=== PATIENT | female | born 2000 | race Caucasian/White ===

== ENCOUNTER 2025-03-24 12:51 | Outpatient (AMB) | payer MEDICAID, SELFPAY ==
--- NOTE | 2025-03-24 13:11 | GYNCLNT_ITS ---
Vital Signs 03/24/25 13:12 Height 1.7 m Height Method Stated Weight 152.974 kg Weight Measurement Method Standing Scale BMI 52.8 BP 148/96 H Blood Pressure Source Automatic Cuff Blood Pressure Location Left Upper Arm Position Sitting Respiration 16 Pulse 96 Pulse Source Monitor Temp 97.2 F Temp Source Oral Pulse Oximetry (%) 98 Oxygen Delivery Method Room Air Allergies/Home Meds Allergies & Medications Allergies No Known Allergies Allergy (Verified 03/24/25 13:13) Medication Reconciliation diazepam 10 mg tablet (Valium) 10 mg PO BID PRN back pain #6 tabs 03/22/24 [Rx Confirmed 03/24/25] hydrochlorothiazide 25 mg tablet 25 mg PO QDAY 03/22/24 [History Confirmed 03/24/25] sertraline 100 mg tablet 100 mg PO QDAY 03/22/24 [History Confirmed 03/24/25] Intake Visit Data Collection New Patient or Established: Established Patient (seen at [facility] within 3 years) Reason for Visit:: PREGNACY TEST Seen by Clinical Staff ONLY (RN/MA): No International Logistics Coordinator Required: No Do You Feel Safe at Home: Yes Authorities Contacted: N/A PCP or OBGYN visit in last 3 months: Yes Date of Last PCP or OBGYN visit: 03/22/25 Hx Now: Yes Are you currently on any form of Control: No Last menstrual period: 01/09/25 Pain Present Currently: No Pain Scale Used: Fisher-Hansen/Numerical Pain scale:: 0 Smoking Status Smoking Status: Never smoker 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 1. Little interest or pleasure in doing things: not at all 2. Feeling down, depressed, or hopeless: not at all Total score: 0 PHQ-9 3. Trouble falling or staying asleep, or sleeping too much: Not at all 4. Feeling tired or having little energy: Not at all 5. Poor appetite or overeating: Not at all 6. Feeling bad about yourself - or that you are a failure or have let yourself or your family down: Not at all 7. Trouble concentrating on things, such as reading the newspaper or watching television: Not at all 8. Moving or speaking so slowly that other people could have noticed? - Or the opposite - being so fidgety or restless that you have been moving around a lot more than usual: not at all 9. Thoughts that you would be better off or of hurting yourself in some way: Not at all Total score: 0 If you checked off any problems, how difficult have these problems made it for you to do your work, take care of things at home, or get along with other people?: not difficult at all Source: Developed by Drs. Iftikhar Villavicencio, Ana Cristina Trujillo, Stef Sotelo and colleagues, with an educational omari from [employer]. Depression screen completed yes Social History Living Situation History Marital Status: Single Lives With: Family Housing: House Tobacco History Smoking Status: Never smoker Second Hand Smoke Exposure: No Alcohol History Alcohol Intake: Never Domestic Abuse History Do You Feel Safe at Home: Yes History of Present Illness HPI Narrative 25-year-old 2 para 1 for test. Patient had a positive test at home she is here for confirmation. She tracks her periods with an alicia. Her last. January 09, 2025. This gives a due date October 16, 2025. So she is 10 weeks 3 today. Patient has a history of chronic hypertension, not on any meds and no follow-up. She also is morbidly obese, her weight today was 337. She denies any social habits. Denies any existing asthma or diabetes or thyroid disease. Denies SAB complaints. No bleeding. The patient is a previous x 1 she was induced at 38 weeks for high blood pressure and need to . No first trimester complaints. Patient and partner are excited about the Review of Systems Review of Systems Systems Reviewed: All systems reviewed, normal except as documented Exam General Limitations: no limitations General Appearance: alert, in no apparent distress, comfortable, cooperative, healthy appearing, well developed and well groomed Head Head exam: atraumatic, normocephalic and normal inspection Chest Chest inspection: Present normal inspection and symmetric chest wall rise Resp Respiratory exam: Present normal lung sounds bilaterally Card Cardiovascular exam: Present regular rate, normal rhythm and normal heart sounds Abdominal Abdominal exam: Present soft and normal bowel sounds Psych Psychiatric exam: Present normal affect and normal mood Results Objective Laboratory: + preg test, BP: 148/96 Office Procedures OBC Clinic LOC & Office Proc's Nursing/Assessment Patient Status: Established Patient OB Clinic Nursing Assessment: Medication Reconciliation, Update PMH in EMR and Vital Signs OB Clinic Coordination of Care: Education Complex Pt/Fam, Consent,records obtained, informed consent, Lab and Imaging orders, Results/Orders obtained and Staff clarify orders Special Needs: Heart tones Established Patient Charge Established Patient Point Assignment: 115 Established Patient Point Charge: EP Level 3 (80-115) Assessment & Plan Diagnosis / Problem List (1) Encounter for test, result positive: Status: Acute Plan verification given. Review of dates. I ordered an OB panel with hemoglobin A1c. CMP. And 24-hour urine protein. NIPT and carrier screens were also done. We discussed diet and weight. Increase activity. Discussed danger signs symptoms and ER precautions. And patient will follow-up with OB for OBI.
[2025-03-24 13:12] VITALS: BP 148/96; PULSE 96; RESP 16; TEMP 36.2; O2SAT 98; BMI 52.8
== END 2025-03-24 13:26 | disposition home or self-care (01) ==
LOC: HODSOBC 12:51
PROVIDERS: PCP Family Medicine; Referring Provider Family Medicine; Supervising Provider Advanced Practice Midwife; Visit Provider Advanced Practice Midwife
DX: Z32.01 Encounter for pregnancy test, result positive (principal)
CPT/HCPCS: 99213; G0463

== ENCOUNTER 2025-04-10 15:52 | Emergency (ER) | payer MEDICAID, SELFPAY ==
[2025-04-10 15:52] VITALS: BMI 49.3
[2025-04-10 16:23] VITALS: BP 160/98; PULSE 107; RESP 18; TEMP 37.6; O2SAT 99
--- NOTE | 2025-04-10 16:38 | XR_ITS ---
Examination: Complete OB ultrasound, less than 14 weeks, transabdominal Date and time of exam: April 10, 2025, 1653 hours INDICATIONS: Vaginal bleeding today Technique: Obstetrical ultrasound images less than 14 weeks performed via transabdominal imaging Findings: Uterus 10.0 cm CRL 2.3 cm corresponds to 9 weeks 0 days gestational age No cardiac motion Right ovary 3.5 cm arterial flow. Left ovary 2.8 cm arterial flow IMPRESSION: Intrauterine gestation corresponding to 9 weeks 0 days gestational age, no cardiac motion, demise
--- NOTE | 2025-04-10 16:39 | PD.EDRME ---
Rapid Medical Screening Exam E Arrival date/time: 04/10/25 15:52 This is a 25-year-old female that is a 2 para 1. She comes into the emergency room today with complaints of vaginal bleeding. Patient states symptoms started today. Patient thinks she is approximately 13 weeks . Her last menstrual period was mid December. Patient denies any urinary symptoms. I have greeted and performed a focused initial assessment of this patient. Initial appropriate labs ordered at this time. A comprehensive ED assessment and evaluation of the patient and analysis of all test and completion of medical decision making process will be conducted by additional ED provider. Chief Complaint: Vaginal Bleeding Time Seen by Provider: 04/10/25 16:25 Vital signs: Vital Signs Temperature 99.6 F 04/10/25 16:23 Pulse Rate 107 H 04/10/25 16:23 Respiratory Rate 18 04/10/25 16:23 Blood Pressure 160/98 H 04/10/25 16:23 Pulse Oximetry (%) 99 04/10/25 16:23 Oxygen Delivery Method Room Air 04/10/25 16:23
[2025-04-10 17:08] LABS: Collection Type, Urine Voided
[2025-04-10 17:12] LABS: Basophils # (Auto) 0.0 Thou/mm3 (0.0-0.2); Basophils % (Auto) 1 % (0-2.5); Eosinophils # (Auto) 0.0 Thou/mm3 (0.0-0.5); Eosinophils % (Auto) 1 % (0-10); Hematocrit 36.2 % (36.0-46.0); Hemoglobin 11.8 g/dL (12.0-16.0); Immature Granulocytes Auto 0.01 Thou/mm3 (0.00-0.00); Lymphocytes # (Auto) 1.9 Thou/mm3 (1.0-4.8); Lymphocytes % (Auto) 37 % (10-50); Mean Corpuscular HGB Conc 32.6 g/dl (31.0-37.0); Mean Corpuscular Hemoglobin 25.9 pg (25.0-35.0); Mean Corpuscular Volume 79 fL (80-100); Monocytes # (Auto) 0.7 Thou/mm3 (0.0-0.8); Monocytes % (Auto) 13 % (0-12); Neutrophils # (Auto) 2.6 Thou/mm3 (1.8-7.7); Neutrophils % (Auto) 49 % (37-80); Nucleated Red Blood Cell # 0.00 Thou/mm3 (0.00-0.00); Nucleated Red Blood Cell % 0 /100 WBC (0); Platelet Count 284 Thou/mm3 (140-440); RDW Standard Deviation 45.3 fL (36.4-46.3); Red Blood Count 4.56 Miln/mm3 (4.00-5.20); White Blood Count 5.2 Thou/mm3 (3.6-11.0)
[2025-04-10 17:24] LABS: Bilirubin,Urine Negative (Negative); Blood,Urine 3+ (Negative); Color,Urine Yellow (Lt Yel-Yel); Culture Indicated,Urine Not Indicated; Glucose, Urine Negative (Negative); Ketones,Urine 2+ (Negative); Leukocyte Esterase,Urine Negative (Negative); Nitrite,Urine Negative (Negative); PH,Urine 6.0 (5.0-7.0); Protein,Urine 1+ (Neg - Trace); RBC,Urine < 1 /hpf (0-3); Specific Gravity,Urine 1.028 (1.001-1.035); Squamous Epithelial Cell,Urine 26 /hpf (0-5); Urobilinogen,Urine Negative mg/dL (0.0-1.0); WBC,Urine 4 /hpf (0-5)
[2025-04-10 17:25] LABS: Clarity,Urine Hazy (Clear/Hazy)
[2025-04-10 17:46] LABS: Alanine Aminotransferase 26 U/L (10-49); Albumin, Serum 4.6 gm/dL (3.5-5.0); Albumin/Globulin Ratio 2.1 (1.2-2.2); Alkaline Phosphatase 38 U/L (46-116); Anion Gap 9 (7-16); Aspartate Amino Transferase 25 U/L (0-34); BUN/Creatinine Ratio 9 Ratio (12-20); Bilirubin,Total 0.3 mg/dL (0.3-1.2); Blood Urea Nitrogen 6 mg/dL (9-23); Calcium 9.3 mg/dL (8.3-10.6); Calcium (Corrected) 9.3 mg/dL (8.5-10.1); Carbon Dioxide 22.6 mMol/L (20.0-31.0); Chloride 106 mMol/L (98-107); Creatinine (Component) 0.7 mg/dL (0.6-1.3); Estimated Creatinine Clearance 180.9 mL/min (>60); Globulin 2.2 gm/dL (2.3-3.5); Glucose 98 mg/dL (74-106); Osmolality,Calculated 273 (275-295); Potassium 3.6 mMol/L (3.4-5.1); Sodium 138 mMol/L (136-145); Total Protein 6.8 gm/dL (5.7-8.2); eGFR > 60 See Note
[2025-04-10 17:51] VITALS: PULSE 118; RESP 18; TEMP 37.4; O2SAT 97
--- NOTE | 2025-04-10 17:54 | EDNOTE_ITS ---
ED OB Contraction Preg RMI/HPI General Chief complaint: Vaginal Bleeding Stated complaint: VAGINAL BLEEDING X1 HR;13 WEEKS OB Time Seen by Provider: 04/10/25 16:25 Arrival date/time: 04/10/25 15:52 RME / HPI RME / HPI Narrative: 04/10/25 15:52 This is a 25-year-old female that is a 2 para 1. She comes into the emergency room today with complaints of vaginal bleeding. Patient states symptoms started today. Patient thinks she is approximately 13 weeks . Her last menstrual period was mid December. Patient denies any urinary symptoms. I have greeted and performed a focused initial assessment of this patient. Initial appropriate labs ordered at this time. A comprehensive ED assessment and evaluation of the patient and analysis of all test and completion of medical decision making process will be conducted by additional ED provider. DR. PARMAR MAIN ED EVALUATION: 25-year-old female, 9 weeks , presents to the Emergency Department accompanied by her partner for evaluation of vaginal bleeding today. The patient reports noticing a small amount of blood when she went to the restroom earlier today. She denies abdominal pain, cramping, dizziness, or passage of clots or tissue. No urinary symptoms, fever, or recent trauma. This is her first episode of bleeding during the . PMHx: Hypertension, section in past, and obesity. Social Hx: No tobacco, alcohol, or substance use. Related Data Home Medications ?Medication ?Instructions ?Recorded ?Confirmed hydrochlorothiazide 25 mg tablet 25 mg PO QDAY 4 03/24/25 sertraline 100 mg tablet 100 mg PO QDAY 03/22/2407/18 Previous Rx's ?Medication ?Instructions ?Recorded diazepam 10 mg tablet (Valium) 10 mg PO BID PRN back p ain #6 tabs 03/22/24 Allergies Allergy/AdvReac Type Severity Reaction Status Date / Time No Known Allergies Allergy Verified 04/10/25 15:55 Review of Systems Review of Systems Systems Reviewed: All systems reviewed, normal except as documented Past Medical History Past Medical History CARDIAC: Positive Hypertension; Negative Congestive Heart Failure RESPIRATORY: Negative Chronic Obstructive Pulmonary Disease (COPD) GENITOURINARY: Negative Renal Disease ENDOCRINE: Negative Diabetes Mellitus Type 1 or Diabetes Mellitus Type 2 Surgical History SURGICAL: Positive Section Social History SMOKING STATUS: Never smoker SECOND HAND EXPOSURE: No ED Exam Narrative Physical exam: GENERAL APPEARANCE: alert and oriented x 4, well-developed, well-nourished, no acute distress, obese VITALS: All vitals were reviewed and the pulse ox is % on room air, which is normal according to my interpretation. HEENT: Normocephalic, atraumatic; pupils equal, round, reactive to light; EOMI; mucous membranes pink, moist; oropharynx clear NECK: Supple LUNGS: CTABL; no wheezes, no rales, no rhonchi HEART: Regular rate, regular rhythm; normal S1, S2; no murmurs ABDOMEN: non distended; normal BS; soft, no tenderness, no guarding, no rebound; no masses, no organomegaly, no hernia BACK: no CVA tenderness EXTREMITIES: atraumatic; no edema NEUROLOGIC: awake; alert and oriented x4; cranial nerves II-XII grossly intact; no focal sensory or motor deficits PSYCHIATRIC: appropriate mood and affect SKIN: warm, dry, normal color; no rashes Course Quality Measures none Orders Category Date Time Status US OB <= 14 weeks fetus Stat Exams 04/10/25 16:38 Completed ABO/RH Type - Stat Lab 04/10/25 16:52 Completed Beta HCG,Quantitative Stat Lab 04/10/25 16:52 Results CBC Stat Lab 04/10/25 16:52 Completed Comprehensive Metabolic Panel Stat Lab 04/10/25 16:52 Results Urinalysis, C/S if Indicated Stat Lab 04/10/25 16:57 Completed Vital Signs Vital signs: Vital Signs Temperature 99.6 F 04/10/25 16:23 Pulse Rate 107 H 04/10/25 16:23 Respiratory Rate 18 04/10/25 16:23 Blood Pressure 160/98 H 04/10/25 16:23 Pulse Oximetry (%) 99 04/10/25 16:23 Oxygen Delivery Method Room Air 04/10/25 16:23 Vaginal Bleeding MDM Narrative MDM Narrative: I, Jessica Alba, am scribing for and in the presence of Dr. Parmar. Patient data External records reviewed:: [facility] previous records Clinical information provided by:: patient and spouse Social determinants that could affect healthcare access:: none Patient has the following chronic illnesses:: Hypertension, section in past, and obesity. How is presenting disease/condition affected by chronic disease/condition?: exacerbated by Evaluation data The following diagnostics were reviewed and interpreted by me:: lab results and radiology exam(s) Lab and/or radiology exams considered but not ordered:: none Interpretation Summary: Procedure(s): US OB <= 14 weeks fetus Accession Number(s): [id number] cc: Jayden Mcmahan MD; NO PRIMARY/FAMILY,PHYSICIAN; Angie Martin NP~ Examination: Complete OB ultrasound, less than 14 weeks, transabdominal Date and time of exam: April 10, 2025, 1653 hours INDICATIONS: Vaginal bleeding today Technique: Obstetrical ultrasound images less than 14 weeks performed via transabdominal imaging Findings: Uterus 10.0 cm CRL 2.3 cm corresponds to 9 weeks 0 days gestational age No cardiac motion Right ovary 3.5 cm arterial flow. Left ovary 2.8 cm arterial flow IMPRESSION: Intrauterine gestation corresponding to 9 weeks 0 days gestational age, no cardiac motion, demise Dictated By: Jayden Mcmahan MD Medications / Prescriptions Medications or Prescriptions considered but not ordered:: none Medication administrations:: none Consultations Consultation(s) initiated? (list below): No Diagnosis Vaginal Bleeding Differential Diagnosis: other (Threatened miscarriage, subchorionic hemorrhage, and cervical irritation.) Most likely diagnosis given after review of the tests above:: Miscarriage Admission Indicated Admission indicated?: not indicated Admission Request Was there a request for admission?: No Disposition Plan Disposition Plan: Discharge Discharge Attestation Discharge Attestation: The patient and all family members were given an opportunity to ask questions and understood the discharge instructions. Discharge instructions specifically effects, indications for sooner follow up or return to the emergency department, and the expected course of current diagnosis. Patient condition: Stable Discharge Plan Plan Patient Disposition: HOME (Self Care) Prescriptions/Referrals Prescriptions/Med Rec: No Action sertraline 100 mg Tablet 100 mg PO QDAY hydrochlorothiazide 25 mg Tablet 25 mg PO QDAY diazepam [Valium] 10 mg tablet 10 mg PO BID PRN (Reason: back pain) Qty: 6 0RF Referrals: No Primary/Family,Physician [Primary Care Provider] - In 1 week Problem List Clinical Impression: Miscarriage Patient/Caregiver Discharge Instructions Education Materials: ED Possible Miscarriage ... Additional Instructions: Follow up in 48hrs to recheck hormone levels. 04/10/25 16:52 beta HCG: miU/mL Print Language: Frisian Stand Alone Forms: Alejandra Award Info., Patient Portal Info Letter
[2025-04-10 17:59] LABS: Beta HCG,Quantitative 9610 mIU/mL (<5.0)
== END 2025-04-10 18:05 | disposition home or self-care (01) ==
PROVIDERS: Nurse Practitioner Family; Emergency Provider Emergency Medicine
DX: O03.9 Complete or unspecified spontaneous abortion without complication (principal); Z3A.13 13 weeks gestation of pregnancy
CPT/HCPCS: 36415; 76801; 80053; 81001; 84702; 85025; 86900; 86901; 99283

== ENCOUNTER 2025-04-16 13:03 | Outpatient (AMB) | payer MEDICAID, SELFPAY ==
[2025-04-16 13:22] VITALS: BP 136/90; PULSE 86; RESP 16; TEMP 37.1; O2SAT 98; BMI 52.7
--- NOTE | 2025-04-16 13:22 | AMB.GYNCLNOT ---
Vital Signs 04/16/25 13:22 Height 1.7 m Height Method Stated Weight 152.52 kg Weight Measurement Method Standing Scale BMI 52.7 BP 136/90 H Blood Pressure Source Automatic Cuff Blood Pressure Location Left Upper Arm Position Sitting Respiration 16 Pulse 86 Pulse Source Monitor Temp 98.8 F Temp Source Oral Pulse Oximetry (%) 98 Oxygen Delivery Method Room Air Allergies/Home Meds Allergies & Medications Allergies No Known Allergies Allergy (Verified 04/16/25 23:29) Medication Reconciliation diazepam 10 mg tablet (Valium) 10 mg PO BID PRN back pain #6 tabs 03/22/24 [Rx Confirmed 04/16/25] hydrochlorothiazide 25 mg tablet 25 mg PO QDAY 03/22/24 [History Confirmed 04/16/25] sertraline 100 mg tablet 100 mg PO QDAY 03/22/24 [History Confirmed 04/16/25] Intake Visit Data Collection New Patient or Established: Established Patient (seen at [facility] within 3 years) Reason for Visit:: EMERGENCY ROOM FOLLOW UP Seen by Clinical Staff ONLY (RN/MA): No Senior Ruby Developer Required: No Do You Feel Safe at Home: Yes Authorities Contacted: N/A PCP or OBGYN visit in last 3 months: Yes Hx Now: No Are you currently on any form of Control: No Pain Present Currently: Yes Pain Location: Abdomen Pain Scale Used: Fisher-Hansen/Numerical Pain scale:: 5 Smoking Status Smoking Status: Never smoker Immunizations Flu Vaccine in the Last 12 Months: Yes Date of most recent flu vaccination: 03/30/25 Flu Vaccine Exclusion Criteria: Already Received 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 Menstrual regularity: regular Flow: normal Monthly: Yes How many days does period last: 5 Age at menarche: 11 Currently sexually active: No If not currently sexually active, have you ever been sexually active: Yes COPY DIRECTOR: Past Medical History Past Medical History: Yes Hx Hypertension, No Hx Renal Disease, No Hx Diabetes Mellitus Type 1 and No Hx Diabetes Mellitus Type 2 Questionnaires Covid-19 Vaccine Questionnaire Has patient been vacinated for Covid-19 Have you been vacinated for Covid-19: Yes PHQ-9 PHQ-2 Over the last 2 weeks, how often have you been bothered by any of the following problems? 1. Little interest or pleasure in doing things: not at all 2. Feeling down, depressed, or hopeless: not at all Total score: 0 PHQ-9 3. Trouble falling or staying asleep, or sleeping too much: Not at all 4. Feeling tired or having little energy: Not at all 5. Poor appetite or overeating: Not at all 6. Feeling bad about yourself - or that you are a failure or have let yourself or your family down: Not at all 7. Trouble concentrating on things, such as reading the newspaper or watching television: Not at all 8. Moving or speaking so slowly that other people could have noticed? - Or the opposite - being so fidgety or restless that you have been moving around a lot more than usual: not at all 9. Thoughts that you would be better off or of hurting yourself in some way: Not at all Total score: 0 Source: Developed by Drs. Iftikhar Villavicencio, Ana Cristina Trujillo, Stef Sotelo and colleagues, with an educational omari from [employer]. Depression screen completed yes Social History Living Situation History Lives With: Family Housing: House Tobacco History Smoking Status: Never smoker Second Hand Smoke Exposure: No Alcohol History Alcohol Intake: Never Domestic Abuse History Do You Feel Safe at Home: Yes History of Present Illness HPI Narrative Follow-up for demise at 9 weeks gestation, bleeding for one week, swollen and hard lymph nodes for 3 weeks Bettina Camacho is a 25-year-old presenting for follow-up after being diagnosed with demise at 9 weeks gestation on April 10, 2025. She was initially seen for possible early miscarriage, and ultrasound confirmed intrauterine gestation corresponding to 9 weeks and 0 days with no cardiac motion consistent with demise. The patient began experiencing bleeding on Saturday (one week prior to today's visit). She describes the bleeding as variable in intensity, sometimes light and then having kind of a clot, with the flow going up and down. Overall, she characterizes the bleeding as about the same as a normal period. She reports having already passed some clots. Additionally, the patient reports problems with her lymph nodes that started approximately 3 weeks ago. She describes one lymph node behind her right ear as hard, and another lower lymph node that is swollen and painful. She denies having any throat infection or other associated symptoms. The patient mentions that her insurance changed in December, so she has not seen her regular doctor since then. Obstetric History: - GPAL: A1 L0 - Current resulted in demise at 9 weeks gestation, currently experiencing bleeding consistent with miscarriage Social History: - Insurance: Recently changed insurance in December, currently has [employer] - Ultrasound (04-10-2025): Intrauterine gestation corresponding to 9 weeks and 0 days, with no cardiac motion consistent with demise Exam General General Appearance: alert, in no apparent distress and healthy appearing Head Head exam: atraumatic Neck Neck exam: Present normal inspection and trachea midline Chest Chest inspection: Present normal inspection and symmetric chest wall rise External exam: Present normal external exam; Absent tenderness Neuro Neurological exam: Present oriented X3 Psych Psychiatric exam: Present normal affect and normal mood Office Procedures OBC Clinic LOC & Office Proc's Nursing/Assessment Patient Status: Established Patient OB Clinic Nursing Assessment: Medication Reconciliation, Update PMH in EMR and Vital Signs OB Clinic Coordination of Care: Complex Care and Chronic Disease 1-5, Education Complex Pt/Fam, Consent,records obtained, informed consent, Lab and Imaging orders, Results/Orders obtained and Staff clarify orders Special Needs: Heart tones Established Patient Charge Established Patient Point Assignment: 140 Established Patient Point Charge: EP Level 4 (120-155) Assessment & Plan Diagnosis / Problem List (1) Missed : Status: Acute Plan demise at 9 weeks Assessment: Patient has confirmed demise at 9 weeks gestation based on ultrasound from 04/10/2025 showing intrauterine gestation with no cardiac motion. She is currently experiencing bleeding that started on Saturday with variable flow described as similar to a normal period, alternating between light bleeding and clots. The bleeding pattern suggests possible spontaneous passage of products of conception is occurring. Plan: - Expectant management with observation given current bleeding pattern - Follow-up ultrasound scheduled for middle of next week to assess remaining products of conception - Three management options discussed: expectant management, medical management with medications to expedite passage, or surgical D&C procedure - Patient chose expectant management given already experiencing bleeding and clots - Will reassess based on follow-up ultrasound findings to determine next steps Lymphadenopathy Assessment: Patient reports lymph node problems for approximately 3 weeks. Physical examination reveals hard lymph node behind right ear and swollen, tender lymph node in neck area. No associated throat infection or other symptoms reported. Lymphadenopathy requires antibiotic treatment and medical follow-up given duration and characteristics. Plan: - Start antibiotics for lymphadenopathy - Referral to primary care physician for ongoing management and follow-up - If lymphadenopathy does not resolve with treatment, biopsy may be necessary - Assistance with finding new primary care provider given recent insurance change from previous doctor in [place]
== END 2025-04-16 13:40 | disposition home or self-care (01) ==
LOC: HODSOBC 13:03
PROVIDERS: Supervising Provider Obstetrics & Gynecology; Visit Provider Obstetrics & Gynecology
DX: O02.1 Missed abortion (principal); O08.89 Other complications following an ectopic and molar pregnancy; R59.0 Localized enlarged lymph nodes
CPT/HCPCS: 99214; G0463

== ENCOUNTER 2025-04-16 23:22 | Emergency (ER) | payer MEDICAID, SELFPAY ==
[2025-04-16 23:24] VITALS: BP 158/91; PULSE 120; RESP 20; TEMP 36.9; O2SAT 100; BMI 49.3
[2025-04-17] VITALS (7 sets, daily range): BP systolic 148–176; BP diastolic 80–96; PULSE 82–108; RESP 14–22; TEMP 36.8–37.2; O2SAT 96–100
--- NOTE | 2025-04-17 00:02 | XR_ITS ---
Examination: OB Transvaginal ultrasound of the pelvis, complete Technique: Transvaginal sonographic images pelvis performed using victor scale imaging Exam date and time: April 17, 2025, 0010 hours INDICATIONS: Empty intrauterine gestational sac on ultrasound April 10, 2025, pelvic pain and bleeding this week FINDINGS: Uterus 11.5 cm CRL 2.4 cm corresponding to 9 weeks 0 days gestational age No cardiac motion Ovaries obscured by bowel gas IMPRESSION: demise
--- NOTE | 2025-04-17 00:03 | EDRME_ITS ---
Rapid Medical Screening Exam [facility] Arrival date/time: 04/16/25 23:22 25F who is currently having miscarriage (confirmed by Dr. Purvis in clinic yesterday) presents to ED with worsening pelvic pain and vaginal bleeding. Dr. Purvis offered either D&C or meds, but patient preferred conservative approach to wait and see. Patient has been taking ibuprofen and Tylenol w/o relief. Chief Complaint: Vaginal Bleeding Vital signs: Vital Signs Temperature 98.4 F 04/16/25 23:24 Pulse Rate 120 H 04/16/25 23:24 Respiratory Rate 20 04/16/25 23:24 Blood Pressure 158/91 H 04/16/25 23:24 Pulse Oximetry (%) 100 04/16/25 23:24 Oxygen Delivery Method Room Air 04/16/25 23:24 Exam: Appears to be in pain Clinical Impression: Miscarriage
[2025-04-17 00:55] LABS: Basophils # (Auto) 0.0 Thou/mm3 (0.0-0.2); Basophils % (Auto) 0 % (0-2.5); Eosinophils # (Auto) 0.0 Thou/mm3 (0.0-0.5); Eosinophils % (Auto) 1 % (0-10); Hematocrit 34.5 % (36.0-46.0); Hemoglobin 11.2 g/dL (12.0-16.0); Immature Granulocytes Auto 0.01 Thou/mm3 (0.00-0.00); Lymphocytes # (Auto) 1.9 Thou/mm3 (1.0-4.8); Lymphocytes % (Auto) 33 % (10-50); Mean Corpuscular HGB Conc 32.5 g/dl (31.0-37.0); Mean Corpuscular Hemoglobin 26.2 pg (25.0-35.0); Mean Corpuscular Volume 81 fL (80-100); Monocytes # (Auto) 0.7 Thou/mm3 (0.0-0.8); Monocytes % (Auto) 12 % (0-12); Neutrophils # (Auto) 3.2 Thou/mm3 (1.8-7.7); Neutrophils % (Auto) 55 % (37-80); Nucleated Red Blood Cell # 0.00 Thou/mm3 (0.00-0.00); Nucleated Red Blood Cell % 0 /100 WBC (0); Platelet Count 249 Thou/mm3 (140-440); RDW Standard Deviation 45.2 fL (36.4-46.3); Red Blood Count 4.27 Miln/mm3 (4.00-5.20); White Blood Count 5.8 Thou/mm3 (3.6-11.0)
[2025-04-17 01:16] LABS: Alanine Aminotransferase 26 U/L (10-49); Albumin, Serum 4.7 gm/dL (3.5-5.0); Albumin/Globulin Ratio 2.6 (1.2-2.2); Alkaline Phosphatase 41 U/L (46-116); Anion Gap 11 (7-16); Aspartate Amino Transferase 22 U/L (0-34); BUN/Creatinine Ratio 13 Ratio (12-20); Bilirubin,Total 0.2 mg/dL (0.3-1.2); Blood Urea Nitrogen 9 mg/dL (9-23); Calcium 9.5 mg/dL (8.3-10.6); Calcium (Corrected) 9.5 mg/dL (8.5-10.1); Carbon Dioxide 23.5 mMol/L (20.0-31.0); Chloride 108 mMol/L (98-107); Creatinine (Component) 0.7 mg/dL (0.6-1.3); Estimated Creatinine Clearance 180.9 mL/min (>60); Globulin 1.8 gm/dL (2.3-3.5); Glucose 113 mg/dL (74-106); Osmolality,Calculated 282 (275-295); Potassium 3.9 mMol/L (3.4-5.1); Sodium 142 mMol/L (136-145); Total Protein 6.5 gm/dL (5.7-8.2); eGFR > 60 See Note
[2025-04-17] MEDS: ONDANSETRON INJ 2 MG/ML INJ 2 ML 4 MG IVP ×2 (01:21→05:34)
[2025-04-17] MEDS: MORPHINE SULF INJ 4 MG/ML VIAL IV (01:22)
[2025-04-17] MEDS: SODIUM CHLORIDE 0.9% 1000 ML 1,000 ML 999 ML IV (01:22)
--- NOTE | 2025-04-17 01:24 | PRELIM_ITS ---
Obstetric ultrasound (transvaginal) . April 17, 2025 at 0011 hours Clinical history: Active miscarriage. Vaginal bleeding x 1 week, pelvic pain today. LMP 01/09/2025. Findings: The uterus is anteverted, measuring 11.5 x 5.4 x 6.5 cm. The cervical length measures 2 cm. There is an irregular intrauterine gestational sac with a single fetus of mean gestational age 9 weeks 0 day, crown rump length is 2.4 cm. No cardiac activity is identified. The ovaries are not visualized. There is no free fluid in the pelvis. Impression: Findings suggestive of intrauterine demise, mean gestational age 9 weeks 0 day. Discussion Details: Results verbally communicated to Kirill Klein RN at 04:17 AM ET 04/17/2025. A call back number was provided to facilitate a direct physician to physician communication. Report Electronically Signed By: Selvin Ochoa 04/17/2025 1:23:54 AM [EST]
[2025-04-17 01:29] LABS: Beta HCG,Quantitative 1857 mIU/mL (<5.0)
--- NOTE | 2025-04-17 02:41 | EDNOTE_ITS ---
ED OB Contraction Preg RMI/HPI General Chief complaint: Vaginal Bleeding Stated complaint: VAG BLEEDING AND LOW ABD PAIN (MISCARAGE) Arrival date/time: 04/16/25 23:22 RME / HPI RME / HPI Narrative: 04/16/25 23:22 25F who is currently having miscarriage (confirmed by Dr. Purvis in clinic yesterday) presents to ED with worsening pelvic pain and vaginal bleeding. Dr. Purvis offered either D&C or meds, but patient preferred conservative approach to wait and see. Patient has been taking ibuprofen and Tylenol w/o relief. DR. LEIGH MAIN ED EVALUATION: Patient approximately 10 weeks EGA, last seen here 1 week CLIENT PROJECT COORDINATOR and determined to beat 9 weeks with missed AB, now presenting with increasing pelvic pain throughout the day and slightly increased bleeding, no passage of clots or material, no fever although reports chills. PMH: HTN, Obesity PSH: Allergies: None Social: Non-smoker, no alcoholism, or illicit drug abuse Exam: Appears to be in pain Impression: Miscarriage Related Data Home Medications ?Medication ?Instructions ?Recorded ?Confirmed hydrochlorothiazide 25 mg tablet 25 mg PO QDAY 4 04/16/25 sertraline 100 mg tablet 100 mg PO QDAY 03/22/2403/25 Previous Rx's ?Medication ?Instructions ?Recorded diazepam 10 mg tablet (Valium) 10 mg PO BID PRN back p ain #6 tabs 03/22/24 Allergies Allergy/AdvReac Type Severity Reaction Status Date / Time No Known Allergies Allergy Verified 04/16/25 23:29 Review of Systems Review of Systems Systems Reviewed: All systems reviewed, normal except as documented Past Medical History Past Medical History CARDIAC: Positive Hypertension GASTROINTESTINAL: Positive Obesity Surgical History SURGICAL: Positive Section ED Exam Narrative Physical exam: GEN. APPEARANCE: The patient is alert awake oriented X-3 under no distress, lying down comfortably, does not look ill/toxic. Patient has good eye contact. Patient is cooperative. VITALS: All vitals were reviewed and the pulse ox is 98%, which is normal according to my interpretation HEENT: Normocephalic, atraumatic and nontender. Pupils are equal and reactive. Oral mucosa is moist. NECK: Supple, nontender, no meningismus, no JVD. There is no thyromegaly and no lymphadenopathy. CHEST: Nontender on palpation no deformity and no crepitus. CARDIOVASCULAR: Heart regular rhythm, no murmur or gallop rub or extra beats. LUNGS: Clear to auscultation bilaterally with symmetrical chest rise. No laboring tachypnea or wheezing. No intercostal subcostal retraction. No rales and no rhonchi. ABDOMEN: Soft, morbidly obese, mildly tender suprapubic region, no guarding, no gross peritoneal findings noted.. There are no abnormal masses palpated. No pulsatile masses or bruits. Active and normal bowel sounds. EXTREMITIES: Normal inspection and palpation. No edema. No cyanosis. Patient is able to move all 4 extremities well SKIN: Warm and dry, no rashes noted. MUSCULOSKELETAL: No lumbar or midline bony tenderness. There is no CVA tenderness. No paraspinal muscle spasm or tenderness. NEURO: Cranial nerves II through XII grossly intact. There are no focal neurologic deficits noted. GCS is 15 PSYCHIATRIC: Patient is in normal mood and affect, cooperative. LYMPHATICS: No major lymphadenopathy noted. Course Quality Measures none Orders Category Date Time Status Insert IV NOW Care 04/17/25 00:02 Active US OB transvaginal Stat Exams 04/17/25 00:02 Taken Beta HCG,Quantitative Stat Lab 04/17/25 00:45 Completed CBC Stat Lab 04/17/25 00:45 Completed CMP [Comprehensive Metabolic Panel] Stat Lab 04/17/25 00:45 Completed Morphine* Inj Med 04/17/25 00:02 Discontinued 4 mg IV X1 ONE Ondansetron Inj [Zofran Inj] Med 04/17/25 00:02 Discontinued 4 mg IVP X1 ONE Sodium Chloride 0.9% 1000 ml [Ns] 1,000 ml Med 04/17/25 00:02 Discontinued IV 999 mls/hr Vital Signs Vital signs: Vital Signs Temperature 98.4 F 04/16/25 23:24 Pulse Rate 120 H 04/16/25 23:24 Respiratory Rate 20 04/16/25 23:24 Blood Pressure 158/91 H 04/16/25 23:24 Pulse Oximetry (%) 100 04/16/25 23:24 Oxygen Delivery Method Room Air 04/16/25 23:24 Vaginal Bleeding MDM Narrative MDM Narrative: Scribe Attestation: I, Earnestine Reed, am scribing for and in the presence of Dr. Leigh. Provider Notation: Although this document has been carefully reviewed, there may still be some phonetic and other typographical errors. These errors are purely grammatical due to imperfections in the software program and should not be construed in any way to compromise the substance of the patient's medical care during this visit. Patient approximately 10 weeks EGA, last seen here 1 week CLIENT PROJECT COORDINATOR and determined to beat 9 weeks with missed AB, now presenting with increasing pelvic pain throughout the day and slightly increased bleeding, no passage of clots or material, no fever although reports chills. Please see PE findings. Beta HCG trending downward and pelvic US essentially unchanged. Case discussed with ORGAN INSTALLER physician who will evaluate this morning. Final diagnosis will be missed AB. Patient data External records reviewed:: [facility] [place] previous records (Reviewed prior ED records from 04/10/25. Patient was seen for Miscarriage.) Clinical information provided by:: patient Social determinants that could affect healthcare access:: none Patient has the following chronic illnesses:: HTN How is presenting disease/condition affected by chronic disease/condition?: exacerbated by Evaluation data The following diagnostics were reviewed and interpreted by me:: lab results and radiology exam(s) Lab and/or radiology exams considered but not ordered:: None Interpretation Summary: RADIOLOGY Transvaginal US: Findings: The uterus is anteverted, measuring 11.5 x 5.4 x 6.5 cm. The cervical length measures 2 cm. There is an irregular intrauterine gestational sac with a single fetus of mean gestational age 9 weeks 0 day, crown rump length is 2.4 cm. No cardiac activity is identified. The ovaries are not visualized. There is no free fluid in the pelvis. Impression: Findings suggestive of intrauterine demise, mean gestational age 9 weeks 0 day. Medications / Prescriptions Medications or Prescriptions considered but not ordered:: None Medication administrations:: Medication Administration History Discontinued Medications Sodium Chloride (Ns) 1,000 mls @ 999 mls/hr IV .Q1H1M ONE Stop: 04/17/25 01:02 Last Admin: 04/17/25 01:22 Dose: 999 mls/hr Documented By: DT Morphine Sulfate (Morphine Sulf Inj 4 Mg/Ml Vial) 4 mg IV X1 ONE Stop: 04/17/25 00:03 Last Admin: 04/17/25 01:22 Dose: 4 mg Documented By: DT Ondansetron HCl (Ondansetron Inj 2 Mg/Ml Inj 2 Ml) 4 mg IVP X1 ONE; Protocol Stop: 04/17/25 00:03 Last Admin: 04/17/25 01:21 Dose: 4 mg Documented By: DT See above if any Consultations Consultation(s) initiated? (list below): Yes Consultation #1 (Physician, Specialty, Details): Dr. Huber made aware of the patient?s HPI, PMHx, lab and/or radiology results. Discussed treatment plan. An ORGAN INSTALLER will evaluate patient in the morning. Time: 03:25 Diagnosis Vaginal Bleeding Differential Diagnosis: missed , threatened , dysfunctional uterine bleeding, menometrorrhagia, incomplete , ectopic without intrauterine and vaginal bleeding Most likely diagnosis given after review of the tests above:: Missed Admission Indicated Admission indicated?: not indicated Explain why admission is indicated or not indicated:: Pending bedside evaluation with ORGAN INSTALLER in the morning Admission Request Was there a request for admission?: No Disposition Plan Disposition Plan: other (specify) (Signed out to Dr. Parmar. ) Discharge Plan Prescriptions/Referrals Prescriptions/Med Rec: No Action sertraline 100 mg Tablet 100 mg PO QDAY hydrochlorothiazide 25 mg Tablet 25 mg PO QDAY diazepam [Valium] 10 mg tablet 10 mg PO BID PRN (Reason: back pain) Qty: 6 0RF Referrals: No Primary/Family,Physician [Primary Care Provider] - In 1 week Problem List Clinical Impression: Missed Patient/Caregiver Discharge Instructions Print Language: Tajik
[2025-04-17] MEDS: MORPHINE SULF INJ 4 MG/ML VIAL IVP (05:33)
--- NOTE | 2025-04-17 07:21 | PD.EDADDENDU ---
Emergency Room Addendum Addendum Narrative: 0600: Care assumed from Dr. Lal, the previous shift emergency physician. Past medical, surgical, social and family history reviewed. Vitals and home medications reviewed. I will assume the care of the patient at this time, pending day shift BROKER ASSOCIATE consult, patient is having miscarriage. Please refer to the emergency department record for history and examination from initial visit.? Physical exam by me shows patient under no acute distress at this time. 0955: Discussed test HPI, PMHx, lab, radiology results and/or management with BROKER ASSOCIATE Dr. Collado. He recommends to discharge and see the patient as an outpatient. 1110: Will discharge the patient with missed and pelvic pain.
--- NOTE | 2025-04-17 07:37 | PC.NURSE ---
Patient's GCS 15 upon assumption of care, denies any pain at this time, VSS on tele, call garcia in reach, will continue POC.
[2025-04-17 10:30] LABS: Collection Type, Urine Catheter
[2025-04-17] MEDS: KETOROLAC INJ 30 MG/ML VIAL 15 MG IVP (10:31)
[2025-04-17] MEDS: HYDROcodone/APAP 5/325 TABLET 1 TAB PO (10:32)
[2025-04-17 10:47] LABS: Bilirubin,Urine Negative (Negative); Blood,Urine 3+ (Negative); Clarity,Urine Clear (Clear/Hazy); Color,Urine Colorless (Lt Yel-Yel); Culture Indicated,Urine Not Indicated; Glucose, Urine Negative (Negative); Ketones,Urine Negative (Negative); Leukocyte Esterase,Urine Negative (Negative); Nitrite,Urine Negative (Negative); PH,Urine 7.0 (5.0-7.0); Protein,Urine Trace (Neg - Trace); RBC,Urine 38 /hpf (0-3); Specific Gravity,Urine 1.006 (1.001-1.035); Squamous Epithelial Cell,Urine < 1 /hpf (0-5); Urobilinogen,Urine Negative mg/dL (0.0-1.0); WBC,Urine 1 /hpf (0-5)
== END 2025-04-17 11:43 | disposition home or self-care (01) ==
PROVIDERS: Emergency Medicine; Physician Assistant; Emergency Provider Emergency Medicine
DX: O02.1 Missed abortion (principal); Z3A.10 10 weeks gestation of pregnancy
CPT/HCPCS: 36415; 76817; 80053; 81001; 84702; 85025; 96361; 96374; 96375; 96376; 99284; J1885; J2270; J2405; J7030; A9270

== ENCOUNTER 2025-04-25 00:33 | Emergency (ER) | payer MEDICAID, SELFPAY ==
--- NOTE | 2025-04-25 00:50 | PD.EDPREG ---
ED OB Contraction Preg RMI/HPI General Chief complaint: Abdominal Pain Stated complaint: MISCARAGE COMPLICATIONS Time Seen by Provider: 04/25/25 00:53 Arrival date/time: 04/25/25 00:33 RME / HPI RME / HPI Narrative: See MDM for Dr. Marcelino's HPI Documentation. Related Data Home Medications ?Medication ?Instructions ?Recorded ?Confirmed hydrochlorothiazide 25 mg tablet 25 mg PO QDAY 03/22/24 04/16/25 sertraline 100 mg tablet 100 mg PO QDAY 03/22/24 04/16/25 Previous Rx's ?Medication ?Instructions ?Recorded diazepam 10 mg tablet (Valium) 10 mg PO BID PRN back pain #6 tabs 03/22/24 acetaminophen 300 mg-codeine 30 mg 2 tab PO Q8H PRN pain #20 tabs 04/25/25 tablet ondansetron 4 mg disintegrating 4 mg PO TID PRN nausea and 04/25/25 tablet vomiting 30 days #10 tabs Allergies Allergy/AdvReac Type Severity Reaction Status Date / Time No Known Allergies Allergy Verified 04/25/25 00:45 Review of Systems Review of Systems Systems Reviewed: All systems reviewed, normal except as documented Past Medical History Past Medical History CARDIAC: Positive Hypertension GASTROINTESTINAL: Positive Obesity Surgical History SURGICAL: Positive Section ED Exam Narrative Physical exam: See [facility] for Dr. Marcelino's Physical Exam Documentation. Course Quality Measures none Orders Category Date Time Status Saline [Insert IV] NOW Care 04/25/25 00:50 Completed US transvaginal Stat Exams 04/25/25 00:52 Completed XR chest 1V portable Stat Exams 04/25/25 01:00 Completed Beta HCG,Quantitative Stat Lab 04/25/25 01:01 Completed Bilirubin,Direct Stat Lab 04/25/25 01:01 Completed Blood Culture (Lab) Stat Lab 04/25/25 01:01 Received CBC Stat Lab 04/25/25 01:01 Completed CMP [Comprehensive Metabolic Panel] Stat Lab 04/25/25 01:01 Completed CRP [C-Reactive Protein] Stat Lab 04/25/25 01:01 Completed ESR [Sed Rate (ESR)] Stat Lab 04/25/25 01:01 Completed Hemoglobin and Hematocrit Stat Lab 04/25/25 02:05 Completed Influenza A & B Rapid Panel Stat Lab 04/25/25 01:26 Completed Lactate (Lactic Acid) Stat Lab 04/25/25 01:01 Completed Magnesium Stat Lab 04/25/25 01:01 Completed PT [Prothrombin Time with INR] Stat Lab 04/25/25 01:01 Completed PTT [Partial Thromboplastin Time] Stat Lab 04/25/25 01:01 Completed Procalcitonin Stat Lab 04/25/25 01:01 Completed TSH [Thyroid Stimulating Hormone] Stat Lab 04/25/25 01:01 Completed Type and Screen Stat Lab 04/25/25 01:01 Completed UA, C/S IF [Urinalysis, C/S if Indicated] Stat Lab 04/25/25 02:51 Completed ACETAMINOPHEN w/COD 300-30 [Tylenol w/Cod #3] Med 04/25/25 04:07 Discontinued 2 tab PO X1 ONE Cefotetan Inj [Cefotan Inj] Med 04/25/25 01:00 Discontinued 2 gm IV X1 ONE Cefotetan Inj [Cefotan Inj] 2 gm Med 04/25/25 01:29 Discontinued SODIUM CHLORIDE 0.9% (Popper) [Ns 0.9% (P)] 100 ml IV X1 Clindamycin 900Mg Ivpb [Cleocin/D5w Ivpb] 900 mg Med 04/25/25 01:00 Discontinued Pre-Mixed [Pre-mixed Bag] 1 bag IV X1 Ketorolac Inj [Toradol Inj] Med 04/25/25 00:50 Discontinued 30 mg IVP X1 ONE Morphine* Inj Med 04/25/25 01:19 Discontinued 4 mg IV X1 ONE Ondansetron Inj [Zofran Inj] Med 04/25/25 00:50 Discontinued 4 mg IVP X1 ONE Ringers Lactated 1000 ml [Lactated Ringers] 1,000 ml Med 04/25/25 00:50 Discontinued IV 1,000 mls/hr Ringers Lactated 1000 ml [Lactated Ringers] 1,000 ml Med 04/25/25 01:41 Discontinued IV 500 mls/hr Tranexamic Acid 1,000 mg Ivpb [Tranexamic Acid Ivpb] Med 04/25/25 00:52 Discontinued 1,000 mg in 100 ml IV [id number] Vital Signs Vital signs: Vital Signs Temperature 100.5 F H 04/25/25 00:58 Pulse Rate 110 H 04/25/25 00:58 Respiratory Rate 22 H 04/25/25 00:58 Blood Pressure 171/100 H 04/25/25 00:58 Pulse Oximetry (%) 98 04/25/25 00:58 Oxygen Delivery Method Room Air 04/25/25 00:58 OB/Uterine Contractions MDM Narrative MDM Narrative:: This section includes all my notes and documentations, including HPI, PE, and ED course. Vahe Marcelino MD HPI: 25 y/o female here with severe vaginal bleeding and pelvic pain from probable miscarriage. Ultrasound a week ago showed demise. Feels weak and lightheaded. No other complaints. ROS: All negative except as documented in HPI. Physical Exam: General: Alert and oriented. No acute distress when remaining still. Eyes: Conjunctivae and lids clear. ENT: No nasal congestion. Neck: Supple. Heart: RRR. Lungs: No respiratory distress. Good air movement. No rhonchi, wheezing, rales. Abdomen: Soft and nontender. Normal bowel sounds. No distension. No rebound or guarding. Back: No CVA tenderness. Skin: Warm and dry. Neuro: Alert and oriented X 3. I reviewed all diagnostic test results: My interpretation of the EKG is: Sinus rhythm (93 bpm) with nonspecific ST-T changes. My interpretation of the chest x-ray is: NAD. My review of the Transvaginal US report is large amount of blood/fluid. Blood tests and urine tests remarkable for Hgb 10.7 (repeat 10.1). Covid/Influenza: Negative. At this point, diagnoses include: Miscarriage Treatment here included: IVF Morphine 4 mg IV Toradol 30 mg IV Zofran 4 mg IV TXA IV Cefotan IV 2 G IV Cleocin 900 mg IV Significant improvement noted. Recommended supportive care. Based on my best medical judgment, made decision no further evaluation or treatment indicated at this time. Patient understands and agrees to the discharge instructions customized and printed, see below. Discharge Instructions from Dr. Marcelino printed for you: 1.? Unfortunately, you had a miscarriage. We are extremely sorry. 2.? You lost a lot of blood. But fortunately, not close to needing blood transfusion. 3.? Your body needs iron to make red blood cells. So increase food rich in iron. Such as red meat and egg yolks and seaweed. 4. Ibuprofen 800 mg every 6-8 hours today and tomorrow to decrease inflammation then as needed. Tylenol with codeine for severe pain. 5.? You don't need to take any more antibiotics. 6.? See a private doctor on 04/26/2025 for recheck. Ask for help until you are completely better. Ask to review all test results and official radiology reports, to make sure you receive all necessary follow-ups and monitoring. 7.? Seek immediate medical care with intolerable pain, extremely heavy vaginal bleeding (soaking more than 3 pads per hour), or with any concerns. Vahe Marcelino MD Patient data External records reviewed:: [facility] previous records (Reviewed prior ED records from 04/17/25. Patient was seen for Missed .) Clinical information provided by:: patient Social determinants that could affect healthcare access:: none Patient has the following chronic illnesses:: Obesity, HTN How is presenting disease/condition affected by chronic disease/condition?: exacerbated by Evaluation data The following diagnostics were reviewed and interpreted by me:: lab results, radiology exam(s) and EKG tracing(s) (My interpretation of the EKG is: Sinus rhythm (93 bpm) with nonspecific ST-T changes. Vahe Marcelino MD) Lab and/or radiology exams considered but not ordered:: None Interpretation Summary: I reviewed all diagnostic test results: My interpretation of the EKG is: Sinus rhythm (93 bpm) with nonspecific ST-T changes. My interpretation of the chest x-ray is: NAD. My review of the Transvaginal US report is large amount of blood/fluid. Blood tests and urine tests remarkable for Hgb 10.7 (repeat 10.1). Covid/Influenza: Negative. Medications / Prescriptions Medications or Prescriptions considered but not ordered:: None Medication administrations:: Medication Administration History Discontinued Medications Acetaminophen/Codeine Phosphate (Acetaminophen W/Cod 300-30 Tablet) 2 tab PO X1 ONE Stop: 04/25/25 04:08 Last Admin: 04/25/25 04:19 Dose: 2 tab Documented By: DB Cefotetan Disodium (Cefotetan Inj 2 Gm Vial) 2 gm IV X1 ONE Stop: 04/25/25 01:01 PST Last Admin: 04/25/25 01:13 PST Dose: Not Given Documented By: JENNIFER Non-Admin Reason: Discontinued Lactated Ringer's (Lactated Ringers) 1,000 mls @ 1,000 mls/hr IV .Q1H ONE Stop: 04/25/25 01:49 PST Last Infusion: 04/25/25 01:50 PST Dose: Infused Documented By: Admin: 04/25/25 01:06 PDT Dose: 1,000 mls/hr Documented By: JENNIFER Tranexamic Acid (Tranexamic Acid Ivpb) 1,000 mg in 100 mls @ 200 mls/hr IV [id number] PRN PRN Reason: BLEEDING Last Infusion: 04/25/25 01:50 PST Dose: Infused Documented By: Admin: 04/25/25 01:53 PDT Dose: 200 mls/hr Documented By: Infusion: 04/25/25 01:49 PDT Dose: Infused Documented By: Admin: 04/25/25 01:06 PDT Dose: 200 mls/hr Documented By: JENNIFER Clindamycin Phosphate 900 mg/ (IV Miscellaneous Supplies) 50 mls @ 50 mls/hr IV X1 ONE Stop: 04/25/25 01:59 PST Last Infusion: 04/25/25 02:24 Dose: Infused Documented By: Admin: 04/25/25 01:12 PST Dose: 50 mls/hr Documented By: JENNIFER Cefotetan Disodium 2 gm/ (Sodium Chloride) 100 mls @ 200 mls/hr IV X1 ONE Stop: 04/25/25 01:58 PST Last Infusion: 04/25/25 01:13 PST Dose: Infused Documented By: Admin: 04/25/25 01:37 PDT Dose: 200 mls/hr Documented By: JENNIFER Lactated Ringer's (Lactated Ringers) 1,000 mls @ 500 mls/hr IV .Q2H ONE Stop: 04/25/25 03:40 Last Infusion: 04/25/25 04:06 Dose: Infused Documented By: Admin: 04/25/25 02:00 Dose: 500 mls/hr Documented By: JENNIFER Ketorolac Tromethamine (Ketorolac Inj 30 Mg/Ml Vial) 30 mg IVP X1 ONE Stop: 04/25/25 00:51 Last Admin: 04/25/25 01:05 PDT Dose: 30 mg Documented By: JENNIFER Morphine Sulfate (Morphine Sulf Inj 4 Mg/Ml Vial) 4 mg IV X1 ONE Stop: 04/25/25 01:20 PST Last Admin: 04/25/25 01:40 PST Dose: 4 mg Documented By: JENNIFER Ondansetron HCl (Ondansetron Inj 2 Mg/Ml Inj 2 Ml) 4 mg IVP X1 ONE; Protocol Stop: 04/25/25 00:51 Last Admin: 04/25/25 01:06 PDT Dose: 4 mg Documented By: JENNIFER Treatment here included: IVF Morphine 4 mg IV Toradol 30 mg IV Zofran 4 mg IV TXA IV Cefotan IV 2 G IV Cleocin 900 mg IV Consultations Consultation(s) initiated? (list below): No Diagnosis OB Contractions Differential Diagnosis: hemorrhage, -induced hypertension, premature labor, pre-eclampsia and eclampsia Most likely diagnosis given after review of the tests above:: Miscarriage Admission Indicated Admission indicated?: not indicated Explain why admission is indicated or not indicated:: With significant improvement and no condition needing emergent intervention, there was no indication for admission. Admission Request Was there a request for admission?: No Disposition Plan Disposition Plan: Discharge Discharge Attestation Discharge Attestation: The patient and all family members were given an opportunity to ask questions and understood the discharge instructions. Discharge instructions specifically effects, indications for sooner follow up or return to the emergency department, and the expected course of current diagnosis. Patient condition: Stable Discharge Plan Plan Patient Disposition: HOME (Self Care) Prescriptions/Referrals Prescriptions/Med Rec: New acetaminophen-codeine 300-30 mg tablet 2 tab PO Q8H MDD 6 PRN (Reason: pain) Qty: 20 0RF ondansetron 4 mg tablet,disintegrating 4 mg PO TID PRN (Reason: nausea and vomiting) 30 Days Qty: 10 0RF No Action sertraline 100 mg Tablet 100 mg PO QDAY hydrochlorothiazide 25 mg Tablet 25 mg PO QDAY diazepam [Valium] 10 mg tablet 10 mg PO BID PRN (Reason: back pain) Qty: 6 0RF Referrals: No Primary/Family,Physician [Primary Care Provider] - In 1 week Problem List Clinical Impression: Miscarriage Patient/Caregiver Discharge Instructions Discharge Activity: activity as tolerated Education Materials: ED MISCARRIAGE Completed Additional Instructions: Discharge Instructions from Dr. Marcelino printed for you: 1.? Unfortunately, you had a miscarriage. We are extremely sorry. 2.? You lost a lot of blood. But fortunately, not close to needing blood transfusion. 3.? Your body needs iron to make red blood cells. So increase food rich in iron. Such as red meat and egg yolks and seaweed. 4. Ibuprofen 800 mg every 6-8 hours today and tomorrow to decrease inflammation then as needed. Tylenol with codeine for severe pain. 5.? You don't need to take any more antibiotics. 6.? See a private doctor on 04/26/2025 for recheck. Ask for help until you are completely better. Ask to review all test results and official radiology reports, to make sure you receive all necessary follow-ups and monitoring. 7.? Seek immediate medical care with intolerable pain, extremely heavy vaginal bleeding (soaking more than 3 pads per hour), or with any concerns. Print Language: Belgian Stand Alone Forms: Alejandra Award Info., Patient Portal Info Letter
--- NOTE | 2025-04-25 00:52 | XR_ITS ---
Examination: Transvaginal ultrasound of the pelvis, complete Technique: Transvaginal sonographic images pelvis performed using victor scale imaging Exam date and time: April 25, 2025, 0206 hours INDICATIONS: Heavy vaginal bleeding onset today with fever FINDINGS: Uterus 13.4 cm endometrium not visualized Fluid versus blood in the lower uterine segment Ovaries obscured by bowel gas IMPRESSION: No uterine mass or intrauterine gestation. Large amount of fluid versus blood in the lower uterine segment, clinical correlation advised
[2025-04-25 00:58] VITALS: BP 171/100; PULSE 110; RESP 22; TEMP 38.1; O2SAT 98; BMI 49.3
[2025-04-25 01:00] LABS: INR 0.9 (0.9-1.3); Partial Thromboplastin Time 25.5 Seconds (22.0-36.0); Prothrombin Time 9.8 Seconds (9.0-12.2)
--- NOTE | 2025-04-25 01:00 | XR_ITS ---
EXAMINATION: AP chest single view TECHNIQUE: AP portable upright chest single view Date and time: April 25, 2025, 0114 hours INDICATIONS: Chest pain shortness of breath today. FINDINGS: Normal heart size. Lungs are clear. The osseous structures are intact IMPRESSION: No active disease
[2025-04-25 01:01] LABS: Alanine Aminotransferase 31 U/L (10-49); Albumin, Serum 4.9 gm/dL (3.5-5.0); Albumin/Globulin Ratio 2.2 (1.2-2.2); Alkaline Phosphatase 43 U/L (46-116); Anion Gap 10 (7-16); Aspartate Amino Transferase 25 U/L (0-34); BUN/Creatinine Ratio 11 Ratio (12-20); Beta HCG,Quantitative 352 mIU/mL (<5.0); Bilirubin,Direct < 0.1 mg/dL (0.0-0.3); Bilirubin,Total 0.2 mg/dL (0.3-1.2); Blood Urea Nitrogen 9 mg/dL (9-23); C-Reactive Protein 0.5 mg/dL (0.0-0.9); Calcium 9.5 mg/dL (8.3-10.6); Calcium (Corrected) 9.5 mg/dL (8.5-10.1); Carbon Dioxide 22.7 mMol/L (20.0-31.0); Chloride 108 mMol/L (98-107); Creatinine (Component) 0.8 mg/dL (0.6-1.3); Estimated Creatinine Clearance 158.3 mL/min (>60); Globulin 2.2 gm/dL (2.3-3.5); Glucose 106 mg/dL (74-106); Magnesium 2.0 mg/dL (1.6-2.6); Osmolality,Calculated 279 (275-295); Potassium 3.8 mMol/L (3.4-5.1); Procalcitonin 0.09 ng/ml (0.0-0.49); Sodium 141 mMol/L (136-145); Thyroid Stimulating Hormone 1.35 uIU/mL (0.55-4.78); Total Protein 7.1 gm/dL (5.7-8.2); eGFR > 60 See Note
[2025-04-25] MEDS: KETOROLAC INJ 30 MG/ML VIAL IVP (01:05)
[2025-04-25] MEDS: ONDANSETRON INJ 2 MG/ML INJ 2 ML 4 MG IVP (01:06)
[2025-04-25] MEDS: RINGERS LACTATED 1000 ML 1,000 ML IV (01:06)
[2025-04-25] MEDS: TRANEXAMIC ACID 1,000 MG IVPB 1,000 MG/100 ML BAG 200 MG IV ×2 (01:06→01:53)
[2025-04-25] MEDS: CLINDAMYCIN 900MG IVPB 900 MG in PRE-MIXED 1 BAG 50 MG IV (01:12)
[2025-04-25 01:13] LABS: Influenza A Ag Negative; Influenza B Ag Negative
[2025-04-25 01:20] LABS: Lactate (Lactic Acid) 2.2 mMol/L (0.4-2.0)
[2025-04-25 01:24] LABS: Sed Rate (ESR) 43 mm/hr (0-20)
[2025-04-25 01:26] LABS: Basophils # (Auto) 0.0 Thou/mm3 (0.0-0.2); Basophils % (Auto) 1 % (0-2.5); Eosinophils # (Auto) 0.0 Thou/mm3 (0.0-0.5); Eosinophils % (Auto) 1 % (0-10); Hematocrit 32.7 % (36.0-46.0); Hemoglobin 10.7 g/dL (12.0-16.0); Immature Granulocytes Auto 0.01 Thou/mm3 (0.00-0.00); Lymphocytes # (Auto) 1.4 Thou/mm3 (1.0-4.8); Lymphocytes % (Auto) 36 % (10-50); Mean Corpuscular HGB Conc 32.7 g/dl (31.0-37.0); Mean Corpuscular Hemoglobin 25.8 pg (25.0-35.0); Mean Corpuscular Volume 79 fL (80-100); Monocytes # (Auto) 0.6 Thou/mm3 (0.0-0.8); Monocytes % (Auto) 14 % (0-12); Neutrophils # (Auto) 2.0 Thou/mm3 (1.8-7.7); Neutrophils % (Auto) 49 % (37-80); Nucleated Red Blood Cell # 0.00 Thou/mm3 (0.00-0.00); Nucleated Red Blood Cell % 0 /100 WBC (0); Platelet Count 249 Thou/mm3 (140-440); RDW Standard Deviation 44.1 fL (36.4-46.3); Red Blood Count 4.15 Miln/mm3 (4.00-5.20); White Blood Count 4.1 Thou/mm3 (3.6-11.0)
[2025-04-25] MEDS: MORPHINE SULF INJ 4 MG/ML VIAL IV (01:40)
[2025-04-25 02:00] VITALS: BP 116/72; PULSE 94; O2SAT 97
[2025-04-25] MEDS: RINGERS LACTATED 1000 ML 1,000 ML 500 ML IV (02:00)
[2025-04-25 02:34] LABS: Hematocrit 31.5 % (36.0-46.0); Hemoglobin 10.1 g/dL (12.0-16.0)
[2025-04-25 03:00] VITALS: BP 109/64; PULSE 79; O2SAT 96
[2025-04-25 03:10] LABS: Collection Type, Urine Clean Catch; Squamous Epithelial Cell,Urine 0 /hpf (0-5); WBC,Urine 0 /hpf (0-5)
[2025-04-25 03:19] LABS: Bilirubin,Urine Negative (Negative); Blood,Urine 3+ (Negative); Clarity,Urine Turbid (Clear/Hazy); Color,Urine Light-Red (Lt Yel-Yel); Culture Indicated,Urine Not Indicated; Glucose, Urine Negative (Negative); Ketones,Urine Negative (Negative); Leukocyte Esterase,Urine Negative (Negative); Nitrite,Urine Negative (Negative); PH,Urine 8.0 (5.0-7.0); Protein,Urine 3+ (Neg - Trace); Specific Gravity,Urine 1.010 (1.001-1.035); Urobilinogen,Urine Negative mg/dL (0.0-1.0)
[2025-04-25 03:20] LABS: RBC,Urine 3 /hpf (0-3)
[2025-04-25 04:14] LABS: Reflex Lactate? Y
[2025-04-25] MEDS: ACETAMINOPHEN w/COD 300-30 TABLET 2 TAB PO (04:19)
[2025-04-25 04:23] VITALS: BP 128/78; PULSE 71; RESP 16; TEMP 37.1; O2SAT 99
== END 2025-04-25 04:27 | disposition home or self-care (01) ==
PROVIDERS: Emergency Provider Emergency Medicine
DX: O03.9 Complete or unspecified spontaneous abortion without complication (principal)
CPT/HCPCS: 36415; 71045; 76830; 80053; 81001; 82248; 83605; 83735; 84145; 84443; 84702; 85014; 85018; 85025; 85610; 85652; 85730; 86140; 86850; 86900; 86901; 87040; 87502; 96361; 96365; 96366; 96375; 99284; J0736; J1885; J2270; J2405; J3490; J7050; J7120; A9270; S0074